=== PATIENT | male | born 1960 | race African-American/Black ===

== ENCOUNTER 2022-08-30 07:57 | Day surgery (SDC) | payer BC ==
[~2022-08-30] VITALS: Ht 167.6 cm; Wt 77.1 kg
[2022-08-30] MEDS ORDERED: OXYCODONE5 M1 PO (08:17)
[2022-08-30] MEDS ORDERED: CYCLOBENZAPRINE10 MG PO (08:17)
[2022-08-30 10:08] VITALS: BP 150/103
== END 2022-08-30 10:25 | disposition home or self-care (01) | DRG 552 ==
LOC: ORM 07:57
PROVIDERS: ATTEND Physical Medicine & Rehabilitation Pain Medicine
DX: M47.816 Spondylosis without myelopathy or radiculopathy, lumbar region (principal); G89.4 Chronic pain syndrome; Z79.899 Other long term (current) drug therapy

== ENCOUNTER 2022-11-01 07:21 | Day surgery (SDC) | payer BC ==
[~2022-11-01] VITALS: Ht 167.6 cm; Wt 78.0 kg
[~2022-11-01 07:21] MED LIST: CYCLOBENZAPRINE10 MG PO; OXYCODONE5 M1 PO
[2022-11-01] MEDS ORDERED: OXYCONTIN PO (09:46)
[2022-11-01] MEDS ORDERED: FLEXERIL5 M1 PO (09:46)
[2022-11-01 11:18] VITALS: BP 119/84
== END 2022-11-01 10:30 | disposition home or self-care (01) | DRG 552 ==
LOC: ORM 07:21
PROVIDERS: ATTEND Physical Medicine & Rehabilitation
DX: M47.816 Spondylosis without myelopathy or radiculopathy, lumbar region (principal); G89.4 Chronic pain syndrome

== ENCOUNTER → 2022-11-15 | Day surgery (SDC) | payer BC ==
[~2022-11-15] MED LIST changes: +FLEXERIL5 M1 PO; +OXYCONTIN PO
== END | disposition home or self-care (01) | DRG 951 ==
LOC: PO 06:38 → ORM 06:38
PROVIDERS: ATTEND Physical Medicine & Rehabilitation
DX: Z01.818 Encounter for other preprocedural examination (principal); Z11.59 Encounter for screening for other viral diseases; M47.816 Spondylosis without myelopathy or radiculopathy, lumbar region